=== PATIENT | female | born 1940 | race Caucasian/White ===

== ENCOUNTER → 2016-07-28 | Outpatient (CLI) | payer OTHER, MEDICARE | LOC: FIMAGING 09:46 | PROVIDERS: ATTEND Specialist | DX: N20.0 Calculus of kidney (principal); N13.30 Unspecified hydronephrosis; K80.20 Calculus of gallbladder without cholecystitis without obstruction; I70.90 Unspecified atherosclerosis; M99.73 Connective tissue and disc stenosis of intervertebral foramina of lumbar region; M43.16 Spondylolisthesis, lumbar region; M12.88 Other specific arthropathies, not elsewhere classified, other specified site ==

== ENCOUNTER 2016-08-17 08:07 | Day surgery (SDC) | payer OTHER, MEDICARE ==
--- NOTE | 2016-08-17 00:37 | GHP ---
[f rep st] PREOP HISTORY AND PHYSICAL DATE OF ADMISSION: 08/17/2016 CHIEF COMPLAINT: Right ureteral stone. HISTORY: This is a 76-year-old woman with a long-standing history of nephrolithiasis, who recently underwent a CT scan that revealed an 8 x 8 x 16 mm long right proximal ureteral calculus, possibly t he UPJ, with severe associated hydronephrosis and moderate chronic right renal cortical thinning. T he patient was also noted to have an approximately 2.5 cm left lower pole partial staghorn calculus. She denies any recent abdominal or flank pain, dysuria, gross hematuria, or changes in her otherwi se normal voiding pattern. PAST MEDICAL HISTORY: Notable for recurrent nephrolithiasis for over 30 years, high cholesterol, hi gh blood pressure, glaucoma, chronic kidney disease (with baseline creatinine approximately 1.3), as thma. PAST SURGICAL HISTORY: Thyroid, kidney stones. ADMISSION MEDICATIONS: Include lisinopril/hydrochlorothiazide 10/12.5 mg daily, multivitamin. ALLERGIES: Nitrofurantoin possibly causes tachycardia, and IV contrast dye causes brown spots. SOCIAL HISTORY: The patient is and lives in the [facility]. She has a several-year smoki ng history and currently smokes 1-3 cigarettes daily. She denies use of alcohol products. PHYSICAL EXAMINATION: GENERAL: Well-developed, well-nourished white female, in no acute distress. VITAL SIGNS: Refer to admit nursing notes. Height 5 feet 6 inches, weight 136 pounds. HEENT: No nfocal. ABDOMEN: Soft. CHEST: Unlabored respiratory pattern. LABORATORY DATA: Refer to hospital records. IMPRESSION: 1. Large right proximal ureteral versus ureteropelvic junction calculus with severe associated hydr onephrosis. 2. Left renal lower pole partial staghorn calculus. PLAN: The patient will undergo intraoperative right-sided ureteroscopy, nephroscopy, calculus manag ement, and ureteral stent placement on 08/17/2016. /[id number]/MODL
[2016-08-17] MEDS ORDERED: LR 1,000 ML IV ONE (08:47)
[2016-08-17] MEDS ORDERED: LIDOCAINE 1% 2 ML INJ ID PRN (08:47)
[2016-08-17] MEDS ORDERED: LIDOCAINE 2% JELLY 20 ML (UROJECT) ONE (08:50)
[2016-08-17] MEDS ORDERED: IOPAMIDOL (ISOVUE-300) 150 ML BTL ONE (08:50)
[2016-08-17] MEDS ORDERED: MIDAZOLAM 2 MG/2 ML VIAL IVP ONE (08:55)
[2016-08-17] MEDS ORDERED: IOPAMIDOL (ISOVUE-M 300) 15 ML VIAL ONE ×3 (09:09→09:18)
[2016-08-17] MEDS ORDERED: PROPOFOL/EMULSION 500 MG/50 ML BOTTLE IV ONE (09:24)
[2016-08-17] MEDS ORDERED: fentaNYL 100 MCG/2 ML INJ ONE (09:24)
--- NOTE | 2016-08-17 09:42 | PDANEPAE ---
ANE Past Medical History - Cardiovascular History Hx Hypertension: Yes - Pulmonary History Hx Sleep Apnea: No ANE Patient History - Allergies Allergies/Adverse Reactions: ENVIRONMENTAL Allergy (Mild, Uncoded 09/29/09 10:04) SINUS DRAINAGE IVP DYE Allergy (Mild, Uncoded 09/29/09 10:03) DARK SPOTS - Home Medications Home Medications: Herbals/Supplements -Info Only 08/17/16 [Last Taken 08/17/16 05:00] Lisinopril-Hctz 10-12.5 mg Tab 08/17/16 [Last Taken 08/17/16 05:00] - NPO status NPO Since - Liquids (Date): 08/16/16 NPO Since - Liquids (Time): 23:30 NPO Since - Solids (Date): 08/16/16 NPO Since - Solids (Time): 05:00 - Smoking Hx Smoking Status: Current every day smoker ANE Labs/Vital Signs - Labs - CBC HCT: 48 - Labs - BMP Creatinine: 1.3 - Vital Signs Blood Pressure: 148/88 Heart Rate: 89 Respiratory Rate: 15 O2 Sat (%): 95 Height: 167.64 cm Weight: 61.235 kg ANE Physical Exam - Airway Mallampati Score: Class 2 - Pulmonary Pulmonary: reduced air movement - ASA Status ASA Status: II, III
[2016-08-17] MEDS ORDERED: ONDANSETRON 4 MG/2 ML VIAL IVP PRN (09:45)
[2016-08-17] MEDS ORDERED: ALBUTEROL 3 ML DEYVIAL IH PRN (09:45)
[2016-08-17] MEDS ORDERED: NALOXONE HCL 0.4 MG/ML INJ IVP PRN (09:45)
[2016-08-17] MEDS ORDERED: HYDROmorphONE/DILAUDID 1 MG/ML SYR IVP PRN (09:45)
[2016-08-17] MEDS ORDERED: fentaNYL 100 MCG/2 ML INJ IVP PRN (09:45)
[2016-08-17] MEDS ORDERED: METOCLOPRAMIDE 10 MG/2 ML VIAL IVP PRN (09:45)
[2016-08-17] MEDS ORDERED: levOFLOXACIN 500 MG/DEXTROSE 100 ML IV ONE (09:55)
[2016-08-17] MEDS ORDERED: MIDAZOLAM 2 MG/2 ML VIAL ONE (10:06)
--- NOTE | 2016-08-17 10:33 | POSTOPPROG ---
Post Op Note Date of Operation: 08/17/16 Surgeon: Cady Guzman (# [id number]) Anesthesia: GET(General Endotracheal) Pre-op Diagnosis: Large Right UPJ calculus Post-op Diagnosis: Large Impacted Right UPJ calculus Procedure: Cysto, ureteroscopy/nephroscopy w/ holmium laser litho., stent placement Findings: See op note Inf/Abcess present in the surg proc area at time of surgery?: No EBL: Minimal Complications: None Drains: Other (4.7 Fr. multilength right ureteral stent) Specimen(s): None
[2016-08-17] MEDS ORDERED: ROCURONIUM 50 MG/5 ML VIAL ONE (10:43)
[2016-08-17] MEDS ORDERED: ONDANSETRON 4 MG/2 ML VIAL ONE (10:44)
[2016-08-17] MEDS ORDERED: PHENYLEPHRINE HCL 100 MCG/ML SYR ONE (11:01)
[2016-08-17] MEDS ORDERED: PHENAZOPYRIDINE HCL 200 MG TAB PO ONE (12:30)
[2016-08-17] MEDS ORDERED: ALBUTEROL 3 ML DEYVIAL ONE (12:43)
--- NOTE | 2016-08-17 12:55 | POSTANESTH ---
Post Anesthetic Evaluation Respiratory Status: Similar to Pre-op Cond. Level of Consciousness/Mental Status: Can Participate in Eval, Mildly Sleepy, Arousable Pain Control: Adequate, Prn Tx Ordered Nausea/Vomiting Control: Adequate, Prn Tx Ordered Complications Possibly Related to Anesthesia: None Noted
--- NOTE | 2016-08-17 13:04 | GOP ---
[f rep st] OPERATIVE REPORT DATE OF OPERATION: 08/17/2016 SURGEON: Cady Guzman MD ANESTHESIA: General endotracheal. PREOPERATIVE DIAGNOSIS: Large right ureteropelvic junction calculus with severe hydronephrosis. POSTOPERATIVE DIAGNOSIS: Impacted large right ureteropelvic junction calculus with severe hydroneph rosis. PROCEDURE PERFORMED: 1. Cystourethroscopy, right retrograde pyelography. 2. Right ureteroscopy and nephroscopy with holmium laser calculus lithotripsy. 3. Right ureteral stent placement (4.7-Welsh multi length). FINDINGS: Large impacted right ureteropelvic junction calculus with severe hydronephrosis. SPECIMENS: None. ESTIMATED BLOOD LOSS: Minimal. INDICATIONS: This woman was recently found on CT imaging to have a very large right ureteropelvic j unction calculus with severe associated hydronephrosis. She presents for operative management at th is time. The indications for the procedures as well as potential risks and complications were discu ssed with the patient preoperatively. She appeared to understand, her questions were answered, and she wished to proceed. Written informed surgical consent was thereafter obtained. DESCRIPTION OF PROCEDURE: The patient was brought to the operating room and administered general en dotracheal anesthesia. She was carefully placed in the dorsal lithotomy position on the cystoscopic table. The genital area was sterilely prepped with Betadine scrub and paint, then draped in the [facility] sterile fashion. Cystoscopy was performed with a 30-degree lens through a 22-Welsh sheath. Ur ethra was unremarkable. Bladder revealed evidence of cystitis cystica, but no gross evidence of pyu emerson. The bladder was otherwise unremarkable. Ureteral orifices were normal in regard to shape and position along the trigone. A 5-Welsh open-ended ureteral catheter was used to perform retrograde pyelography on the right side. Before injection of contrast, a large radiopaque calcification was s een in the region of the ureteropelvic junction. Injection of contrast confirmed this to be a large stone at this location with severe hydronephrosis. I then attempted to pass a 0.035-inch angle-tip ped hydrophilic guidewire up the right ureter and proximal to the calculus. However, even with the aid of a 5-Welsh open-ended ureteral catheter, I was unable to navigate the guidewire proximal to t he calculus. Therefore, I left the guidewire sitting against the distal aspect of the calculus. Th e entire length of the ureter distal to the calculus was dilated with 2 separate inflations and defl ations of a 10 cm balloon by maintaining a pressure of 16 atmospheres for 4 minutes on each occasion . Blue dilator and cystoscope were then removed while keeping the guidewire in its current position . Semi-rigid ureteroscopy was then performed alongside the guidewire. The calculus was identified at the ureteropelvic junction. It was impacted at this location with severe mucosal inflammation an d chronic scarring-type changes. I carefully used a 365-micron holmium laser fiber to fragment the calculus as much as possible. I did end up ultimately teasing some of the impacted portion of the c alculus off the intraluminal wall of the ureter. Some of the fragments then dropped into the renal collecting system. I decided to evaluate these fragments with flexible ureteroscopy to ensure that they were all small enough to pass with an indwelling stent. Therefore, a 0.035-inch superstiff Amp latz guidewire was advanced through the ureteroscope and into the renal collecting system as noted f luoroscopically. At this point, there were 2 guidewires in the renal collecting system. The ureter oscope was removed and a 35 cm hydrophilic ureteral access sheath was advanced over the Amplatz guid ewire until it was positioned at the ureteropelvic junction as noted fluoroscopically. The inner ob turator and the Amplatz superstiff guidewire were removed, thereby keeping the outer ureteral access sheath and the second guidewire in place. A flexible ureteroscopy was performed through the ureter al access sheath. There were several small calculus fragments noted to have collected in a lower po le calyx. A 200-micron holmium laser fiber was used to fragment these calculi into as small pieces as possible, ideally leaving them no more than 1 mm each in size. No other dominant fragments were appreciated at this point. The ureteral access sheath and flexible ureteroscope were then removed i n tandem. I carefully inspected the ureteropelvic junction again. There were, again, some chronic inflammatory whitish changes to a portion of the mucosa, particularly along the inferior and medial aspects, but there did not appear to be any remaining impacted stone visualized. I then replaced th e cystoscope over the guidewire. A 4.7-Welsh multilink hydrophilic ureteral stent was advanced ove r the guidewire until it was properly positioned and seen fluoroscopically in the kidney and cystosc opically in the bladder. The bladder was then drained of all return, which was relatively clear. T he instruments were removed and 20 cc of 2% lidocaine injected transurethrally for postoperative michael lgesic purposes. The patient was then awakened, extubated, transferred to her bed, then taken to [facility] recovery room. She tolerated the procedure well overall. COMPLICATIONS: None. DISPOSITION: She was transferred to the recovery room in stable condition. She will be discharged with instructions to return to the office in approximately 3 weeks with a KUB for ureteral stent rem oval at that time. I will also discharge her on Flomax to maximize ureteral dilatation for stone pa ssage and also have her strain her urine for fragments. /[id number]/MODL
[2016-08-17 14:18] VITALS: TEMP 97.3
[2016-08-17 14:19] VITALS: RESP 16
[2016-08-17] MEDS ORDERED: PHENAZOPYRIDINE HCL 200 MG TAB ONE (16:08)
[2016-08-17 17:01] VITALS: BP 110/64
[2016-08-17 17:27] VITALS: PULSE 72; O2SAT 98
== END 2016-08-17 17:26 | disposition home or self-care (01) ==
LOC: FSGY 08:07
PROVIDERS: ATTEND Specialist
PROC: 0T9 Urinary System, Drainage (ICD-10-PCS; principal; 2016-08-17 09:30)
PROC: BT1D1ZZ Fluoroscopy of Right Kidney, Ureter and Bladder using Low Osmolar Contrast (ICD-10-PCS; principal; 2016-08-17 09:30)
PROC: 0TJB8ZZ Inspection of Bladder, Via Natural or Artificial Opening Endoscopic (ICD-10-PCS; principal; 2016-08-17 09:30)
PROC: 0TF38ZZ Fragmentation in Right Kidney Pelvis, Via Natural or Artificial Opening Endoscopic (ICD-10-PCS; principal; 2016-08-17 09:30)
DX: N13.2 Hydronephrosis with renal and ureteral calculous obstruction (principal); N18.9 Chronic kidney disease, unspecified; F17.210 Nicotine dependence, cigarettes, uncomplicated; Z87.440 Personal history of urinary (tract) infections; N30.90 Cystitis, unspecified without hematuria
CPT/HCPCS: 52356; 76001; C1726; C1758; C1769; C1894; C2625; J1956; J2250; J2370; J2405; J2704; J3010; Q9967

== ENCOUNTER → 2016-09-12 | Outpatient (CLI) | payer OTHER, MEDICARE | LOC: FIMAGING 09:18 | PROVIDERS: ATTEND Specialist | DX: N20.1 Calculus of ureter (principal); Z96.0 Presence of urogenital implants ==

== ENCOUNTER → 2016-10-12 | Outpatient (CLI) | payer OTHER, MEDICARE | LOC: FIMAGING 08:26 | PROVIDERS: ATTEND Specialist | DX: N13.2 Hydronephrosis with renal and ureteral calculous obstruction (principal); K80.20 Calculus of gallbladder without cholecystitis without obstruction; I70.90 Unspecified atherosclerosis ==

== ENCOUNTER 2016-11-08 06:28 | Day surgery (SDC) | payer OTHER, MEDICARE ==
[2016-11-08] MEDS ORDERED: NS 1,000 ML IV SCH (07:00)
--- NOTE | 2016-11-08 13:54 | PDANEPAE ---
ANE Past Medical History - Cardiovascular History Hx Hypertension: Yes Hx Arrhythmias: No Hx Chest Pain: No Hx Coronary Artery / Peripheral Vascular Disease: No Hx CHF / Valvular Disease: No Hx Palpitations: No - Pulmonary History Hx COPD: Yes Hx Asthma/Reactive Airway Disease: Yes Hx Recent Upper Respiratory Infection: No Hx Oxygen in Use at Home: No Hx Sleep Apnea: No Sleep Apnea Screening Result - Last Documented: Negative Pulmonary History Comment: LOTS OF ENVIRONMENTAL ALLERGIES. CHRONIC POST NASAL DRIP - Neurologic History Hx Cerebrovascular Accident: No Hx Seizures: No Hx Dementia: No - Endocrine History Hx Diabetes: No - Renal History Hx Renal Disorders: Yes Renal History Comment: LOTS OF KIDNEY STONES MAKES LOTS OF CALCIUM. MICROHEMATURIA. CHRONIC KIDNEY DX. PRONE TO KIDNEY INFECTIONS - Liver History Hx Hepatic Disorders: No - Neurological & Psychiatric Hx Hx Neurological and Psychiatric Disorders: No - Cancer History Hx Cancer: No - Congenital Disorder History Hx Congenital Disorders: No - GI History Hx Gastrointestinal Disorders: No - Other Health History Other Health History: "NECK HAS LIMITED ROM". 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 DRY EYES/FLOATERS. GLAUCOMA - Chronic Pain History Chronic Pain: No - Surgical History Prior Surgeries: RT URETEROSCOPY WITH STENT 08/17/2016 WITH POST STENT REMVL. PREV KIDNEY STONE SURG X5. THYROID ANE Review of Systems Review of Systems: - Exercise capacity METS (RN): 3 METS ANE Patient History - Allergies Allergies/Adverse Reactions: ENVIRONMENTAL Allergy (Mild, Uncoded 11/01/16 10:01) SINUS DRAINAGE - Home Medications Home Medications: Lisinopril/Hctz 10/12.5 mg [Zestoretic/Prinzide 10/12.5MG (*)] 1 ea PO DAILY #0 08/17/16 [Last Taken 08/17/16 05:00] Ipratropium 0.03% Nasal [Atrovent 0.03% Nasal (*)] 2 sprays EACHNARE BID PRN [Last Taken Unknown] Multivitamins [Multivitamin (*)] 1 each PO DAILY 10/29/16 [Last Taken Unknown] Amox-Clav 500-125 mg Tablet 1 tab PO BID 11/01/16 [Last Taken Unknown] HYDROCODONE BIT/ACETAMINOPHEN 1 - 2 tab PO Q6H 11/01/16 [Last Taken Unknown] - Smoking Hx Smoking Status: Current every day smoker ANE Labs/Vital Signs - Vital Signs Height: 168.91 cm Weight: 61.235 kg ANE Physical Exam - Airway Neck exam: decreased ROM Mallampati Score: Class 2 - Pulmonary Pulmonary: reduced air movement - ASA Status ASA Status: III ANE Anesthesia Plan Anesthesia Plan: MAC
[2016-11-08] MEDS ORDERED: MIDAZOLAM 2 MG/2 ML VIAL ONE (13:56)
[2016-11-08] MEDS ORDERED: fentaNYL 100 MCG/2 ML INJ ONE (13:56)
[2016-11-08] MEDS ORDERED: PROPOFOL/EMULSION 500 MG/50 ML BOTTLE IV ONE (13:57)
[2016-11-08] MEDS ORDERED: LIDOCAINE 1% 300 MG/30 ML SDV ONE (14:59)
[2016-11-08] MEDS ORDERED: IOPAMIDOL (ISOVUE-300) 100 ML BTL ONE (14:59)
--- NOTE | 2016-11-08 14:59 | POSTANESTH ---
Post Anesthetic Evaluation Cardiovascular Status: Similar to Pre-Op Cond Respiratory Status: Similar to Pre-op Cond. Level of Consciousness/Mental Status: Can Participate in Eval Pain Control: Adequate, Prn Tx Ordered Nausea/Vomiting Control: Adequate, Prn Tx Ordered Complications Possibly Related to Anesthesia: None Noted
[2016-11-08] MEDS ORDERED: levOFLOXACIN 500 MG/DEXTROSE 100 ML IV ONE (15:07)
[2016-11-08 15:11] VITALS: PULSE 94; TEMP 97.5
[2016-11-08 15:58] VITALS: O2SAT 89
[2016-11-08 16:05] VITALS: BP 141/73; RESP 18
== END 2016-11-08 16:41 | disposition home or self-care (01) ==
LOC: FIMAGING 06:28
PROVIDERS: ATTEND Specialist
PROC: 0T9130Z Drainage of Left Kidney with Drainage Device, Percutaneous Approach (ICD-10-PCS; principal; 2016-11-08 16:53)
DX: Z46.6 Encounter for fitting and adjustment of urinary device (principal); N20.0 Calculus of kidney
CPT/HCPCS: 50395; 71020; C1729; C1758; C1769; J0696; J1644; J1956; J2250; J2704; J3010; Q9967

== ENCOUNTER 2016-11-09 09:57 | Observation (INO) | payer OTHER, MEDICARE ==
[~2016-11-09 09:57] MED LIST: ALBUTEROL 3 ML DEYVIAL IH PRN; LR 500 ML IV PRN; NALOXONE HCL 0.4 MG/ML INJ IVP PRN; PROMETHAZINE HCL 25 MG/ML INJ IVP PRN; fentaNYL 100 MCG/2 ML INJ IVP PRN
--- NOTE | 2016-11-09 10:59 | PDANEPAE ---
ANE History of Present Illness left nephrolithotomy ANE Past Medical History - Cardiovascular History Hx Hypertension: Yes Hx Arrhythmias: No Hx Chest Pain: No Hx Coronary Artery / Peripheral Vascular Disease: No Hx CHF / Valvular Disease: No Hx Palpitations: No Cardiovascular History Comment: "eren similar to arrhythmia but normal for my heart, echo normal 2011" - Pulmonary History Hx COPD: Yes Hx Asthma/Reactive Airway Disease: Yes Hx Recent Upper Respiratory Infection: No Hx Oxygen in Use at Home: No Hx Sleep Apnea: No Sleep Apnea Screening Result - Last Documented: Negative Pulmonary History Comment: LOTS OF ENVIRONMENTAL ALLERGIES. CHRONIC POST NASAL DRIP - Neurologic History Hx Cerebrovascular Accident: No Hx Seizures: No Hx Dementia: No - Endocrine History Hx Diabetes: No - Renal History Hx Renal Disorders: Yes Renal History Comment: LOTS OF KIDNEY STONES MAKES LOTS OF CALCIUM. MICROHEMATURIA. CHRONIC KIDNEY DX. PRONE TO KIDNEY INFECTIONS - Liver History Hx Hepatic Disorders: No - Neurological & Psychiatric Hx Hx Neurological and Psychiatric Disorders: No - Cancer History Hx Cancer: No - Congenital Disorder History Hx Congenital Disorders: No - GI History Hx Gastrointestinal Disorders: No - Other Health History Other Health History: "NECK HAS LIMITED ROM". 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 DRY EYES/FLOATERS. GLAUCOMA - Chronic Pain History Chronic Pain: No - Surgical History Prior Surgeries: RT URETEROSCOPY WITH STENT 08/17/2016 WITH POST STENT REMVL. PREV KIDNEY STONE SURG X5. THYROID ANE Review of Systems Review of systems is: negative Review of Systems: - Exercise capacity METS (RN): 3 METS ANE Patient History - Allergies Allergies/Adverse Reactions: ENVIRONMENTAL Allergy (Mild, Uncoded 11/01/16 10:01) SINUS DRAINAGE - Home Medications Home medications: home medication list seen and reviewed Home Medications: Lisinopril/Hctz 10/12.5 mg [Zestoretic/Prinzide 10/12.5MG (*)] 1 ea PO DAILY #0 08/17/16 [Last Taken 08/17/16 05:00] Ipratropium 0.03% Nasal [Atrovent 0.03% Nasal (*)] 2 sprays EACHNARE BID PRN [Last Taken Unknown] Multivitamins [Multivitamin (*)] 1 each PO DAILY 10/29/16 [Last Taken Unknown] Amox-Clav 500-125 mg Tablet 1 tab PO BID 11/01/16 [Last Taken Unknown] HYDROCODONE BIT/ACETAMINOPHEN 1 - 2 tab PO Q6H 11/01/16 [Last Taken Unknown] - Anes Hx Anes Hx: no prior problems - Smoking Hx Smoking Status: Current every day smoker - Family Anes Hx Family Hx Anesthesia Complications: denies ANE Labs/Vital Signs - Vital Signs Height: 168.91 cm Weight: 61.235 kg ANE Physical Exam - Airway Neck exam: FROM Mallampati Score: Class 2 Mouth exam: normal dental/mouth exam - Pulmonary Pulmonary: no respiratory distress - Cardiovascular Cardiovascular: regular rate and rhythym - ASA Status ASA Status: III ANE Anesthesia Plan Anesthesia Plan: general endotracheal anesthesia Specialized Airway: video laryngoscope
[2016-11-09] MEDS ORDERED: PROPOFOL 200 MG/20 ML VIAL ONE (11:08)
[2016-11-09] MEDS ORDERED: ROCURONIUM 50 MG/5 ML VIAL ONE ×2 (11:08→11:10)
[2016-11-09] MEDS ORDERED: LIDOCAINE 2% 5 ML SDV ONE (11:08)
[2016-11-09] MEDS ORDERED: fentaNYL 100 MCG/2 ML INJ ONE (11:10)
[2016-11-09] MEDS ORDERED: levOFLOXACIN 500 MG/DEXTROSE 100 ML IV ONE (11:12)
[2016-11-09] MEDS ORDERED: IOPAMIDOL (ISOVUE-300) 100 ML BTL ONE (11:15)
[2016-11-09] MEDS ORDERED: MINERAL OIL 10 ML VIAL ONE (11:15)
[2016-11-09] MEDS ORDERED: LR 1,000 ML IV ONE (11:26)
[2016-11-09] MEDS ORDERED: LIDOCAINE 1% 2 ML INJ ID PRN (11:26)
--- NOTE | 2016-11-09 11:58 | PDHPUP ---
History & Physical Update H&P update statement: This history and physical update is based on an assessment of the patient which was completed after admission or registration (within 24 hours), but prior to the surgery/procedure. H&P update: no change in patient's condition since H&P completed
[2016-11-09] MEDS ORDERED: DEXAMETHASONE 4 MG/ML VIAL ONE (12:11)
[2016-11-09] MEDS ORDERED: SUGAMMADEX SODIUM 200 MG/2 ML VIAL IVP ONE (12:11)
[2016-11-09] MEDS ORDERED: ONDANSETRON 4 MG/2 ML VIAL ONE (12:11)
--- NOTE | 2016-11-09 12:49 | POSTOPPROG ---
Post Op Note Date of Operation: 11/09/16 Surgeon: Cady Guzman (# [id number]) Anesthesia: GET(General Endotracheal) Pre-op Diagnosis: Large left renal stone volume > 3 cm Post-op Diagnosis: Large left renal stone volume > 3 cm Procedure: Left PCNL w/ fluoro > 1 hour, nephrostomy tube placement Findings: See op note Inf/Abcess present in the surg proc area at time of surgery?: No EBL: 50-100 (100 cc) Complications: None Drains: Other (14 Fr. nephrostomy tube) Specimen(s): Left renal calculus fragments
[2016-11-09] MEDS ORDERED: HYDROmorphONE/DILAUDID 2 MG/ML INJ ONE (13:02)
[2016-11-09] MEDS ORDERED: HYDROmorphONE/DILAUDID 1 MG/ML INJ IVP PRN ×2 (14:05→17:12)
[2016-11-09] MEDS ORDERED: PROMETHAZINE HCL 25 MG/ML INJ IVP PRN ×2 (14:05→14:30)
[2016-11-09] MEDS ORDERED: OXYCODONE/APAP 5/325 TAB PO PRN (14:05)
[2016-11-09] MEDS ORDERED: NALOXONE HCL 0.4 MG/ML INJ IVP PRN (14:05)
[2016-11-09] MEDS ORDERED: LR 500 ML IV PRN (14:05)
[2016-11-09] MEDS ORDERED: ONDANSETRON 4 MG/2 ML VIAL IVP PRN ×2 (14:05→14:30)
[2016-11-09] MEDS ORDERED: ACETAMINOPHEN 500 MG TAB PO PRN (14:05)
[2016-11-09] MEDS ORDERED: ALBUTEROL 3 ML DEYVIAL IH PRN (14:05)
[2016-11-09] MEDS ORDERED: fentaNYL 100 MCG/2 ML INJ IVP PRN (14:05)
--- NOTE | 2016-11-09 14:30 | POSTANESTH ---
Post Anesthetic Evaluation Cardiovascular Status: Normal, Stable Respiratory Status: Normal, Stable Level of Consciousness/Mental Status: Can Participate in Eval Pain Control: Adequate, Prn Tx Ordered Nausea/Vomiting Control: Adequate, Prn Tx Ordered Complications Possibly Related to Anesthesia: None Noted
[2016-11-09] MEDS ORDERED: IPRATROPIUM 0.03% NASAL SPRAY EACHNARE PRN (14:31)
[2016-11-09 14:54] LABS: HEMATOCRIT 46.8 % (38.0-47.0); HEMOGLOBIN 15.1 g/dL (12.6-16.3); MEAN CELL HEMOGLOBIN 31.8 pg (27.9-34.1); MEAN CELL HEMOGLOBIN CONCENTR. 32.3 g/dL (32.4-36.7); MEAN CELL VOLUME 98.5 fL (81.5-99.8); RED BLOOD CELL COUNT 4.75 10^6/uL (4.18-5.33)
[2016-11-09 15:20] LABS: ANION GAP 11 mEq/L (8-16); CALCIUM 9.4 mg/dL (8.5-10.4); CARBON DIOXIDE 29 mEq/l (22-31); CHLORIDE 101 mEq/L (97-110); CREATININE 1.3 mg/dL (0.6-1.0); GLOMERULAR FILTRATION RATE 40; GLUCOSE 96 mg/dL (70-100); POTASSIUM 4.3 mEq/L (3.5-5.2); SODIUM 141 mEq/L (134-144)
--- NOTE | 2016-11-09 15:20 | GOP ---
[f rep st] OPERATIVE REPORT DATE OF OPERATION: 11/09/2016 SURGEON: Cady Guzman MD ANESTHESIA: General endotracheal. PREOPERATIVE DIAGNOSIS: Partial left renal staghorn calculus, greater than 3 cm. POSTOPERATIVE DIAGNOSIS: Partial left renal staghorn calculus, greater than 3 cm. PROCEDURE PERFORMED: 1. Percutaneous nephrostolithotomy with greater than 1 hour of fluoroscopic guidance. 2. Left-sided nephrostomy tube placement. FINDINGS: Large left renal stone burden, addressed as noted in the body of the operative report. SPECIMENS: Left renal calculus fragments. ESTIMATED BLOOD LOSS: Approximately 100 cc. INDICATIONS: This woman was recently found to have a partial staghorn calculus on the left side. It was recommended that she undergo intraoperative management. The indications for the procedures as well as potential risks and complications were discussed with the patient preoperatively. She appeared to understand, her questions were answered, and she wished to proceed. Written informed surgical consent was thereafter obtained. DESCRIPTION OF PROCEDURE: The patient had undergone left-sided nephrostomy tube placement in Interventional [facility]iology yesterday. When brought to the operating room today, she was placed in supine position on the operating table. She was administered general endotracheal anesthesia. Anton catheter was placed to gravity drainage. The patient was then carefully turned over into the prone position. The arms were left in neutral positions bilaterally. All appropriate pressure points were padded. The left back region was sterilely prepped and draped in standard fashion. Dr. Fernandez from Interventional Radiology then proceeded to place a balloon occlusion catheter into the proximal left ureter as well as a 32-[place] Islander working nephroscopic sheath. After placement of the sheath, I proceeded with rigid nephroscopy. Multiple large calculus fragments were seen within the renal pelvis. These were removed as much as possible using rigid grasping forceps carefully. Using C-arm fluoroscopy intermittently, I was able to visualize the remaining stone burden within various calyces within the kidney. There were some stones remaining in the upper and mid pole calyces posteriorly. I used flexible nephroscope to identify these stones. I used a 365 micron holmium laser fiber to fully fragment these calculi into minute pieces. They were then flushed into the renal pelvis using saline. There were also some very small calcified plaques adherent to the renal urothelium, particularly in the mid pole and upper pole calices. I did not attempt to remove all of these stones as I did not feel that it would be of significant long-term clinical benefit. I then looked around in the remaining calices. Within the [id number] pole calices, some additional calculi were identified and the 365 micron holmium laser fiber was again used to fragment these stones completely. They were then flushed into the renal pelvis. The rigid nephroscope was then reinserted and rigid grasping forceps were used to remove any remaining renal calculus fragments that were seen. At the conclusion of the procedure, there was no significant remaining renal stone burden appreciated both visually and fluoroscopically. The nephroscope was removed and a 14-[place] Islander nephrostomy tube was placed in the renal pelvis over one of the guidewires. Proper placement was confirmed radiographically with C-arm fluoroscopy, along with injection of contrast through the nephrostomy tube that highlighted the renal pelvis nicely. The nephroscopic sheath was then cut away from the nephrostomy tube. The _ nephrostomy tube had been deployed by this point. The nephrostomy tube was further secured to the skin with a 2-0 silk suture. A ski-slope dressing was then applied and the nephrostomy tube was connected to bag drainage. It irrigated nicely at this point and the return was dark pink. The patient was then turned back over to the supine position. She was awakened, extubated, transferred to her bed, then taken to the recovery room. She tolerated the procedure well overall. COMPLICATIONS: None. DISPOSITION: She was transferred to the recovery room in stable condition and will be admitted overnight for postoperative care. /[id number]/MODL MTDD
[2016-11-09] MEDS: D5W 1/2 NS 1,000 ML IV SCH ×2 (16:34→22:48)
[2016-11-09] MEDS ORDERED: HYDROCODONE/APAP 5/325 TAB PO PRN (17:12)
[2016-11-10 05:26] LABS: HEMATOCRIT 40.3 % (38.0-47.0); HEMOGLOBIN 13.2 g/dL (12.6-16.3); MEAN CELL HEMOGLOBIN 31.7 pg (27.9-34.1); MEAN CELL HEMOGLOBIN CONCENTR. 32.8 g/dL (32.4-36.7); MEAN CELL VOLUME 96.6 fL (81.5-99.8); RED BLOOD CELL COUNT 4.17 10^6/uL (4.18-5.33); RED CELL DISTRIBUTION WIDTH 12.1 % (11.5-15.2)
[2016-11-10 05:37] LABS: ANION GAP 9 mEq/L (8-16); CALCIUM 8.5 mg/dL (8.5-10.4); CARBON DIOXIDE 27 mEq/l (22-31); CHLORIDE 102 mEq/L (97-110); CREATININE 1.4 mg/dL (0.6-1.0); GLOMERULAR FILTRATION RATE 36; GLUCOSE 136 mg/dL (70-100); SODIUM 138 mEq/L (134-144)
[2016-11-10 08:14] VITALS: RESP 18
[2016-11-10] MEDS ORDERED: LISINOPRIL/HCTZ 10/12.5 MG 1 EA TAB PO SCH (09:00)
[2016-11-10] MEDS ORDERED: MULTIVITAMINS 1 EACH TAB PO SCH (09:00)
[2016-11-10 12:58] VITALS: BP 112/70; PULSE 76; TEMP 98.3
[2016-11-10 13:30] VITALS: O2SAT 92
--- NOTE | 2016-11-10 14:08 | ASMTCMCOM ---
CM Note CM Note Notes: Pt admitted for left kidney stone surgery. Anticipate pt will have no DC needs. C/M available if needs change. Date Signed: 11/10/2016 02:07 PM Electronically Signed By:Marcelle Padilla LCSW
--- NOTE | 2016-11-10 15:04 | PDHOMEO2F ---
Home Oxygen Face to Face Home Orders: I certify that a physician or a nurse practitioner or physician's physicians assistant has had a kwer-ii-vvme encounter with this patient on the date of this order due to the diagnosis listed, which relates to the primary reason the patient requires home oxygen. Alternative treatments have been tried, or considered, and deemed ineffective. It is anticipated that supplemental oxygen will result in improvement with treatment. Home oxygen qualifying diagnosis: hypoxia post surgery, asthma history SpO2 on room air (%): 86 Frequency of home oxygen needed: continuous Home oxygen liters per minute: 3 Home oxygen delivery device: nasal cannula Concentrator: Yes E-tanks for mobility and back up: Yes If ordering portable O2, is the patient mobile in the home?: Yes I certify that, based on these findings, the home oxygen is medically necessary for this patient for the following length of time. Length of time home oxygen needed: 99 years
--- NOTE | 2016-11-10 15:09 | SOAPPROG ---
SOAP Progress Note Assessment/Plan: Assessment: Post op PCNL right side Plan: Discharge home on oxygen. To IR on Sunday for neph tube removal post antegrade nephrostogram and followup with Dr Guzman in 1 month. 11/10/16 15:05 Objective: Vital Signs Temp Pulse Resp BP Pulse Ox 36.8 C 76 18 112/70 92 11/10/16 12:56 11/10/16 12:56 11/10/16 12:56 11/10/16 12:56 11/10/16 13:30 Laboratory Results 11/10/16 04:44 11/10/16 04:44 11/09/16 11/10/16 11/11/16 05:59 05:59 05:59 Intake Total 850 Output Total 365 200 Balance 485 -200 Physical Exam - Physical Exam General Appearance: WD/WN, alert, no apparent distress Neck: full range of motion Respiratory: lungs clear, other (on o2), No respiratory distress Cardiac/Chest: regular rate, rhythm Abdomen: normal bowel sounds, non-tender, other (left sided neph tube with blood in bag) Skin: normal color Neuro/Psych: no motor/sensory deficits, alert ICD10 Worksheet Patient Problems: Problems Problem Status Onset Nephrolithiasis Acute
--- NOTE | 2016-11-10 21:33 | GDS ---
[f rep st] DISCHARGE SUMMARY PREOPERATIVE DIAGNOSIS: Left renal stone. POSTOPERATIVE DIAGNOSIS: Left renal stone. Patient was admitted for a left percutaneous nephrolithotomy, which she underwent without difficulty. She is being discharged home in good condition with portable oxygen for which she reports is a long history of variable hypoxemia. She is to have an antegrade nephrostogram with possible neph tube re moval on Sunday with Interventional Radiology and follow up with our office in 1 month. /[id number]/MODL
[2016-11-16 09:03] LABS: NIDUS NOT OBSERVED; SOURCE OF STONE LEFT RENAL
== END 2016-11-10 17:17 | disposition home or self-care (01) ==
LOC: F3N 09:57 → INTOOBSV 09:57 → F1N 15:52
PROVIDERS: ADMIT Specialist; ATTEND Specialist
DX: N20.0 Calculus of kidney (principal); Z87.442 Personal history of urinary calculi; N18.9 Chronic kidney disease, unspecified; R31.21 Asymptomatic microscopic hematuria
CPT/HCPCS: 50081; 50432; 74485; C1725; C1729; C1758; C1769; C1894; J1100; J1170; J1644; J1956; J2405; J2704; J3010; Q9967; 82365-90

== ENCOUNTER → 2016-11-13 | Day surgery (SDC) | payer OTHER, MEDICARE ==
[~2016-11-13] MED LIST changes: -ALBUTEROL 3 ML DEYVIAL IH PRN; +IOPAMIDOL (ISOVUE-300) 100 ML BTL ONE; -LR 500 ML IV PRN; -NALOXONE HCL 0.4 MG/ML INJ IVP PRN; -PROMETHAZINE HCL 25 MG/ML INJ IVP PRN; -fentaNYL 100 MCG/2 ML INJ IVP PRN
== END | disposition home or self-care (01) ==
LOC: FIMAGING 08:01
PROVIDERS: ATTEND Specialist
PROC: BT1F1ZZ Fluoroscopy of Left Kidney, Ureter and Bladder using Low Osmolar Contrast (ICD-10-PCS; principal; 2016-11-13)
PROC: 0TP5X0Z Removal of Drainage Device from Kidney, External Approach (ICD-10-PCS; principal; 2016-11-13)
DX: Z43.6 Encounter for attention to other artificial openings of urinary tract (principal); N20.0 Calculus of kidney; Z87.442 Personal history of urinary calculi
CPT/HCPCS: Q9967